=== PATIENT | male | born 1970 | race Caucasian/White ===

== ENCOUNTER → 2017-01-25 | Outpatient (CLI) | payer OTHER ==
--- NOTE | 2017-01-25 14:34 | Diagnostic Imaging Report ---
PROCEDURE: CT head and CT cervical spine without contrast. TECHNIQUE: Multiple contiguous axial images were obtained through the brain and cervical spine without the use of intravenous contrast. Sagittal and coronal reformations through the cervical spine were then performed. INDICATION: Left arm paresthesias. COMPARISON: None. FINDINGS: CT HEAD: No intracranial hemorrhage, mass effect, hydrocephalus or extra-axial fluid collections. No CT evidence of acute infarction. Osseous structures are intact. Mild mucosal thickening or mucous retention cyst in the floor of the right maxillary sinus. Bilateral maxillary antrostomies and ethmoidectomies. The mastoid air cells are clear. The orbits are unremarkable. CT CERVICAL SPINE: Normal alignment of cervical spine. Benign hemangioma in the C5 vertebral body. Vertebral body heights are maintained. No acute fracture. The visualized paravertebral soft tissues are unremarkable. There are moderate to advanced degenerative endplate changes at C5-C6 and C6-C7, including ossification of the posterior longitudinal ligament, which results in at least gczz-[id number] spinal canal narrowing at these levels. Scattered more mild degenerative endplate changes, result in no other appreciable spinal canal narrowing on this noncontrast exam. Uncovertebral and facet arthropathy result in mild to moderate bilateral neural foraminal narrowing bilaterally at C5-C6. No other substantial neural foraminal narrowing in the cervical spine. IMPRESSION: 1. Degenerative endplate changes at C5-C6 and C6-C7, including ossification of posterior longitudinal ligament, results in at least mild to moderate spinal canal narrowing at these levels. This could be better evaluated with CT myelogram or MRI. 2. Uyzq-xf-[id number] bilateral neural foraminal narrowing at C5-C6. 3. No acute intracranial CT findings. Dictated by: Dictated on workstation # [id number]
== END ==
LOC: RAD 14:01
PROVIDERS: ATTEND Family Medicine
DX: R20.2 Paresthesia of skin (principal); R20.0 Anesthesia of skin; M47.812 Spondylosis without myelopathy or radiculopathy, cervical region
CPT/HCPCS: 70450; 72125

== ENCOUNTER → 2017-02-18 | Outpatient (CLI) | payer OTHER | LOC: RAD 13:38 | PROVIDERS: ATTEND Family Medicine | DX: R20.0 Anesthesia of skin (principal) ==

== ENCOUNTER 2018-01-01 07:43 | Emergency (ER) | payer OTHER ==
[~2018-01-01] VITALS: Ht 185.4 cm; Wt 108.9 kg
[2018-01-01] MEDS ORDERED: NS IV 1000 ML 1,000 ML IV ONE (07:56)
[2018-01-01] MEDS ORDERED: fentaNYL INJECTION 100 MCG/2 ML AMP IVP STA ×2 (07:56→10:05)
--- NOTE | 2018-01-01 08:07 | ED Trauma-Multisystem ---
General Chief Complaint: Trauma-Non Activation Stated Complaint: L SIDE,BACK PAIN Source of Information: Patient Exam Limitations: No Limitations History of Present Illness Date Seen by Provider: Jan 01, 2018 Time Seen by Provider: 07:50 Initial Comments Here with report of syncopal episode last night at about 10 p.m. States he was in the ground smoking when he had a coughing fit. This caused him to pass out and he fell forward and hit the left side of his chest and ribs on the van parked in the garage and then hit the floor face first. Has bruising to his face and nose. Complains of significant pain to the left lower lateral chest wall and left side of the abdomen. States it hurts when taking a breath. Has not taken anything for pain. Reports some difficulty with breathing. Denies vomiting or diarrhea. Does report pain to the chest and abdomen with any movement of the torso or arms. Location Injury Occurred: home Occurred: Yesterday Severity: Moderate Pain/Injury Location: Abdomen, Chest, Face, Head Method of Injury: Direct Blow, Fall Modifying Factors: Immobilization, No Movement Loss of Consciousness: Brief (Seconds) Associated Symptoms (Fall): Abdominal Pain, Chest Pain, No Lightheadedness, Muscle Spasms, No Nausea/Vomiting, No Neck Pain Allergies and Home Medications Allergies Coded Allergies: No Known Drug Allergies (Unverified , 01/01/18) Home Medications Alprazolam 0.5 Mg Tablet, 1 MG PO DAILY, (Reported) Esomeprazole Magnesium 20 Mg Capsule.dr, 20 MG PO DAILY, (Reported) Lisinopril 20 Mg Tablet, 20 MG PO DAILY, (Reported) Naproxen 500 Mg Tablet, 500 MG PO BID, (Reported) Tramadol HCl 50 Mg Tablet, 50 MG PO QID PRN for prn, (Reported) Patient Home Medication List Home Medication List Reviewed: Yes Constitutional: see HPI, No chills, No fever Eyes: No Symptoms Reported Ears: No Symptoms Reported Nose: No Symptoms Reported Mouth: No Symptoms Reported Throat: No Symptoms to Report Respiratory: see HPI, cough, No wheezing Cardiovascular: See HPI, Denies Edema, Denies Palpitations Gastrointestinal: abdominal pain, No nausea, No vomiting Genitourinary: no symptoms reported Musculoskeletal: see HPI, muscle pain, muscle stiffness, No neck pain Skin: No see HPI, change in color (bruising noted to upper nose and central forehead), No lesions Psychiatric/Neurological: No Symptoms Reported All Other Systems Reviewed Negative Unless Noted: Yes Past Manjyvy-Sjhtwo-Luwwmj Hx Patient Social History Alcohol Use: Denies Use Recreational Drug Use: No Smoking Status: Current Everyday Smoker Recent Foreign Travel: No Contact w/Someone Who Travel: No Surgeries History of Surgeries: Yes Surgeries: Orthopedic Respiratory History of Respiratory Disorde: No Cardiovascular History of Cardiac Disorders: Yes Cardiac Disorders: Hypertension Neurological History of Neurological Disord: No Gastrointestinal History of Gastrointestinal Di: Yes Gastrointestinal Disorders: Gastroesophageal Reflux Musculoskeletal History of Musculoskeletal Dis: Yes Musculoskeletal Disorders: Degenerate Disk Disease Endocrine History of Endocrine Disorders: No HEENT History of HEENT Disorders: No Cancer History of Cancer: No Psychosocial History of Psychiatric Problem: Yes Behavioral Health Disorders: Anxiety Reviewed Nursing Assessment Reviewed/Agree w Nursing PMH: Yes Family Medical History Significant Family History: No Pertinent Family Hx Physical Exam Vital Signs Vital Signs - First Documented 01/01/18 07:57 Temp 98.5 Pulse 110 Resp 20 B/P (MAP) 180/103 (128) Pulse Ox 95 O2 Delivery Room Air General Appearance: No Apparent Distress, WD/WN Head: Ecchymosis (her nose and central forehead), No Active Bleeding Eyes: Bilateral Eye Normal Inspection, Bilateral Eye PERRL, Bilateral Eye EOMI Ears, Nose, Throat: Hearing Grossly Normal, No Dental Injury, Other (bruising to the nose.) Neck: Full Range of Motion, Non Tender, Supple Cardiovascular: No Murmur, Tachycardia Respiratory: Lungs Clear, Normal Breath Sounds, Other (patient with difficulty taking deep breath due to pain limitation) Gastrointestinal: Tenderness (greatest on the left side. Noted some rigidity in the left side but may be splinting.) Back: Normal Inspection, No Vertebral Tenderness, Other (tender to the left low posterior chest wall) Extremity: Normal Range of Motion, Non Tender Neurologic/Psychiatric: Alert, Oriented x3, No Motor/Sensory Deficits Skin: Warm/Dry, Ecchymosis (noted to the bases described above. No ecchymosis or abrasions to the left anterior, lateral or posterior chest wall.) Ursula Coma Score Best Eye Response ([place]): (4) Open Spontaneously Best Verbal Response ([place]): (5) Oriented Best Motor Response ([place]): (6) Obeys Commands Progress/Results/Core Measures Results/Orders Lab Results Laboratory Tests Test 01/01/18 08:00 01/01/18 09:02 01/01/18 09:08 Range/Units White Blood Count 10.4 4.3-11.0 10^3/uL Red Blood Count 5.79 4.35-5.85 10^6/uL Hemoglobin 15.9 13.3-17.7 G/DL Hematocrit 48 40-54 % Mean Corpuscular Volume 83 80-99 FL Mean Corpuscular Hemoglobin 28 25-34 PG Mean Corpuscular Hemoglobin Concent 33 32-36 G/DL Red Cell Distribution Width 18.2 H 10.0-14.5 % Platelet Count 254 130-400 10^3/uL Mean Platelet Volume 9.8 7.4-10.4 FL Neutrophils (%) (Auto) 67 42-75 % Lymphocytes (%) (Auto) 19 12-44 % Monocytes (%) (Auto) 11 0-12 % Eosinophils (%) (Auto) 1 0-10 % Basophils (%) (Auto) 1 0-10 % Neutrophils # (Auto) 7.0 1.8-7.8 X 10^3 Lymphocytes # (Auto) 2.0 1.0-4.0 X 10^3 Monocytes # (Auto) 1.1 H 0.0-1.0 X 10^3 Eosinophils # (Auto) 0.1 0.0-0.3 10^3/uL Basophils # (Auto) 0.1 0.0-0.1 10^3/uL Sodium Level 136 135-145 MMOL/L Potassium Level 3.8 3.6-5.0 MMOL/L Chloride Level 103 98-107 MMOL/L Carbon Dioxide Level 27 21-32 MMOL/L Anion Gap 6 5-14 MMOL/L Blood Urea Nitrogen 7 7-18 MG/DL Creatinine 0.85 0.60-1.30 MG/DL Estimat Glomerular Filtration Rate > 60 BUN/Creatinine Ratio 8 Glucose Level 112 H 70-105 MG/DL Calcium Level 8.8 8.5-10.1 MG/DL Total Bilirubin 0.5 0.1-1.0 MG/DL Aspartate Amino Transf (AST/SGOT) 28 5-34 U/L Alanine Aminotransferase (ALT/SGPT) 40 0-55 U/L Alkaline Phosphatase 56 40-136 U/L Total Protein 6.5 6.4-8.2 GM/DL Albumin 4.1 3.2-4.5 GM/DL Amylase Level 57 25-125 U/L Lipase 33 8-78 U/L Urine Color YELLOW Urine Clarity CLEAR Urine pH 8 5-9 Urine Specific [place] 1.010 L 1.016-1.022 Urine Protein NEGATIVE NEGATIVE Urine Glucose (UA) NEGATIVE NEGATIVE Urine Ketones NEGATIVE NEGATIVE Urine Nitrite NEGATIVE NEGATIVE Urine Bilirubin NEGATIVE NEGATIVE Urine Urobilinogen NORMAL NORMAL MG/DL Urine Leukocyte Esterase NEGATIVE NEGATIVE Urine RBC (Auto) NEGATIVE NEGATIVE Urine RBC NONE /HPF Urine WBC NONE /HPF Urine Squamous Epithelial Cells NONE /HPF Urine Crystals NONE /LPF Urine Bacteria NEGATIVE /HPF Urine Casts NONE /LPF Urine Mucus NEGATIVE /LPF Urine Culture Indicated NO My Orders Orders - BILLIE TALAVERA MD Amylase (01/01/18 07:56) Cbc With Automated Diff (01/01/18 07:56) Comprehensive Metabolic Panel (01/01/18 07:56) Lipase (01/01/18 07:56) Ua Culture If Indicated (01/01/18 07:56) Saline Lock/Iv-Start (01/01/18 07:56) Ns Iv 1000 Ml (Sodium Chloride 0.9%) (01/01/18 07:56) Fentanyl Injection (Sublimaze Injection (01/01/18 07:56) Ct Head/Cervical Spine Wo (01/01/18 07:56) Ct Chest/Abdomen/Pelvis W (01/01/18 07:56) Iohexol Injection (Omnipaque 350 Mg/Ml 1 (01/01/18 08:15) Sodium Chloride Flush (Catheter Flush Sy (01/01/18 08:15) Ns (Ivpb) (Sodium Chloride 0.9%) (01/01/18 08:15) Pharmacy Communication (Pharmacy Communi (01/01/18 08:08) Iohexol Injection (Omnipaque 350 Mg/Ml 1 (01/01/18 08:45) Sodium Chloride Flush (Catheter Flush Sy (01/01/18 08:45) Ns (Ivpb) (Sodium Chloride 0.9%) (01/01/18 08:45) Pharmacy Communication (Pharmacy Communi (01/01/18 08:32) Fentanyl Injection (Sublimaze Injection (01/01/18 10:05) Hydrocodone/Apap 7.5/325 Tab (Lortab 7. (01/01/18 10:05) Incentive Spirometryrt Initial (01/01/18 10:05) Incentive Spirometry (Nursing) Q2H (01/01/18 10:05) Medications Given in ED Current Medications Medications Dose Ordered Sig/Zane Route Start Time Stop Time Status Last Admin Dose Admin Iohexol 100 ml ONCE ONCE IV 01/01/18 08:15 01/01/18 08:16 DC 01/01/18 08:50 100 ML Sodium Chloride 250 ml ONCE ONCE IV 01/01/18 08:15 01/01/18 08:16 DC 01/01/18 08:50 80 ML Sodium Chloride 1,000 ml @ 0 mls/hr Q0M ONCE IV 01/01/18 07:56 01/01/18 08:00 DC 01/01/18 08:16 1,000 MLS/HR Vital Signs/I&O Vital Sign - Last 12Hours 01/01/18 01/01/18 01/01/18 07:57 08:07 08:15 Temp 98.5 98.5 98.5 Pulse 110 110 Resp 20 20 B/P (MAP) 180/103 (128) 180/103 (128) Pulse Ox 95 95 O2 Delivery Room Air Room Air Progress Note : Progress Note Seen and evaluated. IV, labs, UA, CT head and neck without contrast and CT of chest, abdomen and pelvis with contrast. Normal saline 1 L bolus. Fentanyl 75 g IV ordered. Monitor patient. 1000: Reviewed fractures noted on CT. Repeat fentanyl 75 g IV ordered. Hydrocodone 7.5 mg by mouth ordered. I discussed the case with Dr. Rutherford as well as Dr. Felder. They will both see him in follow-up. RT for incentive spirometer teaching ordered. Discharged home with return precautions. Patient and family verbalize understanding instructions and agreement with plan. Diagnostic Imaging Diagonstic Imaging: CT Plain Films/CT/US/NM/MRI: chest, abdomen, pelvis Comments [place] NAME: AMMY JAMESON A MED REC#: [id number] PT STATUS: REG ER : 1970 PHYSICIAN: BILLIE TALAVERA MD ADMIT DATE: 01/01/18/ER Draft Date of Exam:01/01/18 CT CHEST/ABDOMEN/PELVIS W PROCEDURE: CT chest, abdomen, and pelvis with contrast. TECHNIQUE: Multiple contiguous axial images were obtained through the chest, abdomen, and pelvis after the administration of intravenous contrast. INDICATION: Choking spell and fall with left lateral chest pain. CT chest: FINDINGS: No definite mediastinal hematoma or great vessel injury is seen. No pericardial or pleural fluid is detected. No parenchymal contusion or pneumothorax is seen. There are some subtle lucency involving anterior aspect of left sixth, seventh and eighth ribs, suspicious for nondisplaced fractures. No displaced rib fracture is identified. IMPRESSION: Findings suspicious for left sixth through eighth nondisplaced rib fractures. No other significant abnormality is seen. CT abdomen and pelvis: No focal liver or splenic laceration is identified. The gallbladder is unremarkable. Pancreas is unremarkable. No adrenal mass or hematoma is identified. Kidneys are unremarkable apart from small cortical cyst left kidney. There is a retroaortic left renal vein, normal variant. The aorta is non-aneurysmal. The small and large bowel loops are normal caliber. There is mild sigmoid diverticulosis. No ascites is seen. The bladder is unremarkable. IMPRESSION: 1. No evidence of abdominal or pelvic visceral injury. 2. Uncomplicated sigmoid diverticulosis. Dictated on workstation # [id number] Dict: 01/01/18912 Trans: 01/01/18920 [id number] Interpreted by: KIP JONES MD Electronically signed by: Amandagonsjackie Imaging: CT Plain Films/CT/US/NM/MRI: abdomen, pelvis Comments [place] NAME: AMMY JAMESON [facility] REC#: [id number] PT STATUS: REG ER : 1970 PHYSICIAN: BILLIE TALAVERA MD ADMIT DATE: 01/01/18/ER Draft Date of Exam:01/01/18 CT HEAD/CERVICAL SPINE WO Clinical indication: Patient blacked out and hit head on floor after choking spell. Patient feels knot in throat. Exam: Head CT without IV contrast. Axial CT scan of the cervical spine with sagittal and coronal reformations. Comparison: CT scan of the head and cervical spine without contrast dated 01/25/2017. Findings: Head CT: There is no evidence of acute cerebral infarct, intracranial hemorrhage, or gross mass effect. The brain parenchymal volume appears appropriate for patient's age. There is normal bolden-white matter distinction. There is no significant midline shift or herniation. There is no evidence of hydrocephalus. The basal cisterns are unremarkable. The skull, extracranial soft tissue, and orbits are unremarkable. There is a small to moderate-sized mucus retention cyst in right maxillary sinus. There are postop changes to the paranasal sinuses seen. There is a small mucus retention cyst in the posterior left ethmoid sinus. There is a small amount of fluid in the right mastoid air cells. Cervical spine: There is no acute cervical spine fracture or dislocation. Comparison to prior CT scan, there has been interval postop changes with partial corpectomy of the C5 and C6 vertebral bodies with inner body fusion cage seen connecting the C4-C7 vertebra. There is solid bony bridging/fusion seen. There is no gross hardware complication seen. There is anterior fusion hardware seen from the C4 spanning to the C7 level. There is posterior fusion hardware with facet screws and bilateral spanning rods seen from the C4-C7 level. There is no significant bony central canal narrowing. There is moderate to severe left C3-C4 bony neural foramen narrowing and moderate right C3-C4 bony neural foramen narrowing from uncinate spurs and facet arthropathy. Besides postop changes, the neck soft tissue structures show no significant abnormality. Stable small calcification in the midline posterior nasopharyngeal soft tissue. Impression: 1: There is no evidence of acute intracranial process. There is no intracranial hemorrhage or skull fracture. 2: There is no acute cervical spine fracture or dislocation. 3: There is interval postop changes with C5-C6 partial corpectomy with C4-C7 360 degree fusion. There is solid intervertebral bony fusion seen between the C4 and C7 vertebra. Dictated on workstation # [id number] Dict: 01/01/18 0844 Trans: 01/01/18 0857 [facility] [id number] Interpreted by: PRERNA OH MD Electronically signed by: Departure Impression Impression: Primary Impression: Traumatic closed nondisplaced fracture of three ribs on left side Qualified Codes: S22.42XA - Multiple fractures of ribs, left side, initial encounter for closed fracture Additional Impression: Head injury, acute Qualified Codes: S09.90XA - Unspecified injury of head, initial encounter Disposition: 01 HOME, SELF-CARE Condition: Stable Departure-Patient Inst. Decision time for Depature: 10:12 Referrals: RUBY FELDER DO (PCP/Family) Primary Care Physician RUT RUTHERFORD MD Patient Instructions: Minor Head Injury (DC), Rib Fracture (DC) Add. Discharge Instructions: All discharge instructions reviewed with patient and/or family. Voiced understanding. Use incentive spirometer several times per hour while awake. Take medications as directed. Follow-up with Dr. Felder either Saturday around 11 or next Saturday afternoon. Call Dr. Rutherford's office today for appointment within one week for recheck and further evaluation. Return for worse pain, fever, vomiting , weakness, breathing problems or other concerns as needed. Scripts Hydrocodone/Acetaminophen (Hydrocodone-Acetamin 7.5-325) 1 Each Tablet 1 EACH PO q4-6 hours Y for PAIN-MODERATE, #30 TAB 0 Refills Prov: BILLIE TALAVERA MD 01/01/18 Naproxen (Naprosyn) 500 Mg Tablet 500 MG PO BID Y for PAIN-MILD TO MODERATE, #30 TAB 0 Refills Prov: BILLIE TALAVERA MD 01/01/18 Copy Copies To 1: RUBY FELDER DO Copies To 2: RUT RUTHERFORD MD, TIMOTHY D MD Jan 01, 2018 08:07
[2018-01-01 08:10] LABS: BASOPHILS # (AUTO) 0.1 10^3/uL (0.0-0.1); BASOPHILS % (AUTO) 1 % (0-10); EOSINOPHILS # (AUTO) 0.1 10^3/uL (0.0-0.3); EOSINOPHILS % (AUTO) 1 % (0-10); HEMATOCRIT 48 % (40-54); HEMOGLOBIN 15.9 G/DL (13.3-17.7); LYMPHOCYTES % (AUTO) 19 % (12-44); MEAN CORPUSCULAR HEMOGLOBIN 28 PG (25-34); MEAN CORPUSCULAR HGB CONC 33 G/DL (32-36); MEAN CORPUSCULAR VOLUME 83 FL (80-99); MEAN PLATELET VOLUME 9.8 FL (7.4-10.4); MONOCYTES # (AUTO) 1.1 X 10^3 (0.0-1.0); MONOCYTES % (AUTO) 11 % (0-12); NEUTROPHILS % (AUTO) 67 % (42-75); PLATELET COUNT 254 10^3/uL (130-400); RED BLOOD COUNT 5.79 10^6/uL (4.35-5.85); RED CELL DISTRIBUTION WIDTH 18.2 % (10.0-14.5); WHITE BLOOD COUNT 10.4 10^3/uL (4.3-11.0)
[2018-01-01] MEDS ORDERED: NS 250 ML (IVPB) BAG IV ONE ×2 (08:15→08:45)
[2018-01-01] MEDS ORDERED: CATHETER FLUSH 10 ML SYR IV PRN ×2 (08:15→08:45)
[2018-01-01] MEDS ORDERED: IOHEXOL 350 MG/ML 100 ML (OMNIPAQUE 350) VIAL IV ONE ×2 (08:15→08:45)
[2018-01-01] MEDS ORDERED: ESOM20CA PO (08:44)
[2018-01-01] MEDS ORDERED: NAPR-915 PO (08:44)
[2018-01-01] MEDS ORDERED: LISI-552 PO (08:46)
[2018-01-01] MEDS ORDERED: TRAM50TA2 PO (08:46)
[2018-01-01] MEDS ORDERED: ALPR0.5T PO (08:46)
--- NOTE | 2018-01-01 08:58 | Diagnostic Imaging Report ---
Clinical indication: Patient blacked out and hit head on floor after choking spell. Patient feels knot in throat. Exam: Head CT without IV contrast. Axial CT scan of the cervical spine with sagittal and coronal reformations. Comparison: CT scan of the head and cervical spine without contrast dated 01/25/2017. Findings: Head CT: There is no evidence of acute cerebral infarct, intracranial hemorrhage, or gross mass effect. The brain parenchymal volume appears appropriate for patient's age. There is normal bolden-white matter distinction. There is no significant midline shift or herniation. There is no evidence of hydrocephalus. The basal cisterns are unremarkable. The skull, extracranial soft tissue, and orbits are unremarkable. There is a small to moderate-sized mucus retention cyst in right maxillary sinus. There are postop changes to the paranasal sinuses seen. There is a small mucus retention cyst in the posterior left ethmoid sinus. There is a small amount of fluid in the right mastoid air cells. Cervical spine: There is no acute cervical spine fracture or dislocation. Comparison to prior CT scan, there has been interval postop changes with partial corpectomy of the C5 and C6 vertebral bodies with inner body fusion cage seen connecting the C4-C7 vertebra. There is solid bony bridging/fusion seen. There is no gross hardware complication seen. There is anterior fusion hardware seen from the C4 spanning to the C7 level. There is posterior fusion hardware with facet screws and bilateral spanning rods seen from the C4-C7 level. There is no significant bony central canal narrowing. There is moderate to severe left C3-C4 bony neural foramen narrowing and moderate right C3-C4 bony neural foramen narrowing from uncinate spurs and facet arthropathy. Besides postop changes, the neck soft tissue structures show no significant abnormality. Stable small calcification in the midline posterior nasopharyngeal soft tissue. Impression: 1: There is no evidence of acute intracranial process. There is no intracranial hemorrhage or skull fracture. 2: There is no acute cervical spine fracture or dislocation. 3: There is interval postop changes with C5-C6 partial corpectomy with C4-C7 360 degree fusion. There is solid intervertebral bony fusion seen between the C4 and C7 vertebra. Dictated by: Dictated on workstation # [id number]
[2018-01-01 09:14] LABS: BILIRUBIN,URINE NEGATIVE (NEGATIVE); CLARITY,URINE CLEAR; COLOR,URINE YELLOW; GLUCOSE, URINE (UA) NEGATIVE (NEGATIVE); KETONES,URINE NEGATIVE (NEGATIVE); LEUKOCYTE ESTERASE ,URINE NEGATIVE (NEGATIVE); NITRITE,URINE NEGATIVE (NEGATIVE); PH,URINE 8 (5-9); PROTEIN,URINE NEGATIVE (NEGATIVE); UROBILINOGEN,URINE NORMAL (NORMAL)
--- NOTE | 2018-01-01 09:22 | Diagnostic Imaging Report ---
PROCEDURE: CT chest, abdomen, and pelvis with contrast. TECHNIQUE: Multiple contiguous axial images were obtained through the chest, abdomen, and pelvis after the administration of intravenous contrast. INDICATION: Choking spell and fall with left lateral chest pain. CT chest: FINDINGS: No definite mediastinal hematoma or great vessel injury is seen. No pericardial or pleural fluid is detected. No parenchymal contusion or pneumothorax is seen. There are some subtle lucency involving anterior aspect of left sixth, seventh and eighth ribs, suspicious for nondisplaced fractures. No displaced rib fracture is identified. IMPRESSION: Findings suspicious for left sixth through eighth nondisplaced rib fractures. No other significant abnormality is seen. CT abdomen and pelvis: No focal liver or splenic laceration is identified. The gallbladder is unremarkable. Pancreas is unremarkable. No adrenal mass or hematoma is identified. Kidneys are unremarkable apart from small cortical cyst left kidney. There is a retroaortic left renal vein, normal variant. The aorta is non-aneurysmal. The small and large bowel loops are normal caliber. There is mild sigmoid diverticulosis. No ascites is seen. The bladder is unremarkable. IMPRESSION: 1. No evidence of abdominal or pelvic visceral injury. 2. Uncomplicated sigmoid diverticulosis. Dictated by: Dictated on workstation # [id number]
[2018-01-01 09:28] LABS: BACTERIA,URINE NEGATIVE /HPF
[2018-01-01 09:35] LABS: ALANINE AMINOTRANSFERASE 40 U/L (0-55); ALBUMIN 4.1 GM/DL (3.2-4.5); ALKALINE PHOSPHATASE 56 U/L (40-136); AMYLASE 57 U/L (25-125); BILIRUBIN,TOTAL 0.5 MG/DL (0.1-1.0); BUN/CREATININE RATIO 8; CALCIUM 8.8 MG/DL (8.5-10.1); CARBON DIOXIDE 27 MMOL/L (21-32); CHLORIDE 103 MMOL/L (98-107); CREATININE SERUM 0.85 MG/DL (0.60-1.30); GFR ESTIMATED > 60; GLUCOSE 112 MG/DL (70-105); LIPASE 33 U/L (8-78); POTASSIUM 3.8 MMOL/L (3.6-5.0); SODIUM 136 MMOL/L (135-145); TOTAL PROTEIN 6.5 GM/DL (6.4-8.2)
[2018-01-01] MEDS ORDERED: HYDROcodone/APAP 7.5 MG/325 MG (LORTAB, LORCET PLUS) TABLET PO STA (10:05)
[2018-01-01] MEDS ORDERED: NAPR-1071 PO (10:17)
[2018-01-01] MEDS ORDERED: HYDR-3816 PO (10:17)
[2018-01-01 10:30] VITALS: BP 180/103
== END 2018-01-01 10:30 | disposition home or self-care (01) ==
LOC: EDUNIT# 07:43 → ER 07:45
DX: S09.90XA Unspecified injury of head, initial encounter (principal); S22.42XA Multiple fractures of ribs, left side, initial encounter for closed fracture; R40.2142 Coma scale, eyes open, spontaneous, at arrival to emergency department; R40.2252 Coma scale, best verbal response, oriented, at arrival to emergency department; R40.2362 Coma scale, best motor response, obeys commands, at arrival to emergency department; I10 Essential (primary) hypertension; K21.9 Gastro-esophageal reflux disease without esophagitis; F41.9 Anxiety disorder, unspecified; F17.200 Nicotine dependence, unspecified, uncomplicated; W01.198A Fall on same level from slipping, tripping and stumbling with subsequent striking against other object, initial encounter; Y92.59 Other trade areas as the place of occurrence of the external cause
CPT/HCPCS: 36415; 70450; 71260; 72125; 74177; 80053; 81000; 82150; 83690; 85025; 94664; 96361; 96374; 96376

== ENCOUNTER 2018-11-19 20:29 | Inpatient (IN) | payer OTHER ==
[~2018-11-19] VITALS: Ht 188 cm; Wt 118.0 kg
[~2018-11-19 20:29] MED LIST: ALPR0.5T PO; ESOM20CA PO; HYDR-3816 PO; LISI-552 PO; NAPR-1071 PO; NAPR-915 PO; TRAM50TA2 PO
--- OUTSIDE RECORDS SUMMARY | 2018-11-19 20:34 | XMS REPORT | Continuity of Care Document ---
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 Problems Date Dx Coded Attending Type Code Diagnosis Diagnosed By 07/31/2013 VANDANA MAY DO Ot 840.9 07/31/2013 COLTHARP DOVANDANA Ot E000.0 07/31/2013 COLTHARP DOVANDANA Ot E849.8 07/31/2013 COLTHARP DOVANDANA Ot E885.9 07/31/2013 COLTHARP DOVANDANA Ot V57.1 01/29/2017 GELLENDER DO, RUBY Armstrong Ot M47.812 SPONDYLOSIS W/O MYELOPATHY OR RADICULOPA 01/29/2017 GELLENDER DO, RUBY Armstrong Ot R20.0 ANESTHESIA OF SKIN 01/29/2017 GELLENDER DO, RUBY Armstrong Ot R20.2 PARESTHESIA OF SKIN 02/26/2017 GELLENDER DO, RUBY Armstrong Ot M47.812 SPONDYLOSIS W/O MYELOPATHY OR RADICULOPA 02/26/2017 GELLENDER DO, RUBY Armstrong Ot R20.0 ANESTHESIA OF SKIN 02/26/2017 GELLENDER DO, RUBY Armstrong Ot R20.2 PARESTHESIA OF SKIN 01/01/2018 GELLENDER DO, RUBY Armstrong Ot M47.812 SPONDYLOSIS W/O MYELOPATHY OR RADICULOPA 01/01/2018 GELLENDER DO, RUBY Armstrong Ot R20.0 ANESTHESIA OF SKIN 01/01/2018 GELLENDER DO, RUBY A Ot R20.2 PARESTHESIA OF SKIN 01/01/2018 GELLENDER DO, RUBY A Ot R20.0 ANESTHESIA OF SKIN 01/01/2018 SADAF QUIÑONES, BILLIE Roberto Ot F17.200 NICOTINE DEPENDENCE, UNSPECIFIED, UNCOMP 01/01/2018 BILLIE TALAVERA MD Ot F41.9 ANXIETY DISORDER, UNSPECIFIED 01/01/2018 BILLIE TALAVERA MD Ot I10 ESSENTIAL (PRIMARY) HYPERTENSION 01/01/2018 BILLIE TALAVERA MD, Ot K21.9 GASTRO-ESOPHAGEAL REFLUX DISEASE WITHOUT 01/01/2018 BILLIE TALAVERA MD Ot R40.2142 COMA SCALE, EYES OPEN, SPONTANEOUS, EMR 01/01/2018 BILLIE TALAVERA MD Ot R40.2252 COMA SCALE, BEST VERBAL RESPONSE, ORIENT 01/01/2018 BILLIE TALAVERA MD, Ot R40.2362 COMA SCALE, BEST MOTOR RESPONSE, OBEYS C 01/01/2018 BILLIE TALAVERA MD Ot R55 SYNCOPE AND COLLAPSE 01/01/2018 BILLIE TALAVERA MD, Ot S09.90XA UNSPECIFIED INJURY OF HEAD, INITIAL ENCO 01/01/2018 BILLIE TALAVERA MD Ot S22.42XA MULTIPLE FRACTURES OF RIBS, LEFT SIDE, I 01/01/2018 BILLIE TALAVERA MD Ot W01.198A FALL SAME LEV FROM SLIP/TRIP W STRIKE AG 01/01/2018 BILLIE TALAVERA MD Ot Y92.[address] 01/03/2018 BILLIE TALAVERA MD Ot F17.200 NICOTINE DEPENDENCE, UNSPECIFIED, UNCOMP 01/03/2018 BILLIE TALAVERA MD, Ot F41.9 ANXIETY DISORDER, UNSPECIFIED 01/03/2018 BILLIE TALAVERA MD Ot I10 ESSENTIAL (PRIMARY) HYPERTENSION 01/03/2018 BILLIE TALAVERA MD, Ot K21.9 GASTRO-ESOPHAGEAL REFLUX DISEASE WITHOUT 01/03/2018 BILLIE TALAVERA MD Ot R40.2142 COMA SCALE, EYES OPEN, SPONTANEOUS, EMR 01/03/2018 BILLIE TALAVERA MD, Ot R40.2252 COMA SCALE, BEST VERBAL RESPONSE, ORIENT 01/03/2018 BILLIE TALAVERA MD, Ot R40.2362 COMA SCALE, BEST MOTOR RESPONSE, OBEYS C 01/03/2018 BILLIE TALAVERA MD Ot R55 SYNCOPE AND COLLAPSE 01/03/2018 BILLIE TALAVERA MD Ot S09.90XA UNSPECIFIED INJURY OF HEAD, INITIAL ENCO 01/03/2018 BILLIE TALAVERA MD Ot S22.42XA MULTIPLE FRACTURES OF RIBS, LEFT SIDE, I 01/03/2018 SADAF QUIÑONES, BILLIE Roberto Ot W01.198A FALL SAME LEV FROM SLIP/TRIP W STRIKE AG 01/03/2018 SADAF QUIÑONES, BILLIE Roberto Ot Y92.[address] 07/21/2018 GELLENDER DO, RUBY Armstrong Ot M47.812 SPONDYLOSIS W/O MYELOPATHY OR RADICULOPA 07/21/2018 GELLENDER DO, RUBY A Ot R20.0 ANESTHESIA OF SKIN 07/21/2018 GELLENDER DO, RUBY A Ot R20.2 PARESTHESIA OF SKIN 07/21/2018 GELLENDER DO, RUBY A Ot R20.0 ANESTHESIA OF SKIN 11/19/2018 GELLENDER DO, RUBY Nathaniel Ot M47.812 SPONDYLOSIS W/O MYELOPATHY OR RADICULOPA 11/19/2018 GELLENDER DO, RUBY A Ot R20.0 ANESTHESIA OF SKIN 11/19/2018 GELLENDER DO, RUBY Nathaniel Ot R20.2 PARESTHESIA OF SKIN 11/19/2018 GELLENDER DO, RUBY Nathaniel Ot R20.0 ANESTHESIA OF SKIN Procedures There is no data. Results Test Result Range Complete blood count (CBC) with automated white blood cell (WBC) differential - 01/01/18 08:00 Blood leukocytes automated count (number/volume) 10.4 10*3/uL 4.3-11.0 Blood erythrocytes automated count (number/volume) 5.79 10*6/uL 4.35-5.85 Venous blood hemoglobin measurement (mass/volume) 15.9 g/dL 13.3-17.7 Blood hematocrit (volume fraction) 48 % 40-54 Automated erythrocyte mean corpuscular volume 83 [foz_us] 80-99 Automated erythrocyte mean corpuscular hemoglobin (mass per erythrocyte) 28 pg 25-34 Automated erythrocyte mean corpuscular hemoglobin concentration measurement ( mass/volume) 33 g/dL 32-36 Automated erythrocyte distribution width ratio 18.2 % 10.0-14.5 Automated blood platelet count (count/volume) 254 10*3/uL 130-400 Automated blood platelet mean volume measurement 9.8 [foz_us] 7.4-10.4 Automated blood neutrophils/100 leukocytes 67 % 42-75 Automated blood lymphocytes/100 leukocytes 19 % 12-44 Blood monocytes/100 leukocytes 11 % 0-12 Automated blood eosinophils/100 leukocytes 1 % 0-10 Automated blood basophils/100 leukocytes 1 % 0-10 Blood neutrophils automated count (number/volume) 7.0 10*3 1.8-7.8 Blood lymphocytes automated count (number/volume) 2.0 10*3 1.0-4.0 Blood monocytes automated count (number/volume) 1.1 10*3 0.0-1.0 Automated eosinophil count 0.1 10*3/uL 0.0-0.3 Automated blood basophil count (count/volume) 0.1 10*3/uL 0.0-0.1 Comprehensive metabolic panel - 01/01/18 09:02 Serum or plasma sodium measurement (moles/volume) 136 mmol/L 135-145 Serum or plasma potassium measurement (moles/volume) 3.8 mmol/L 3.6-5.0 Serum or plasma chloride measurement (moles/volume) 103 mmol/L 98-107 Carbon dioxide 27 mmol/L 21-32 Serum or plasma anion gap determination (moles/volume) 6 mmol/L 5-14 Serum or plasma urea nitrogen measurement (mass/volume) 7 mg/dL 7-18 Serum or plasma creatinine measurement (mass/volume) 0.85 mg/dL 0.60-1.30 Serum or plasma urea nitrogen/creatinine mass ratio 8 NRG Serum or plasma creatinine measurement with calculation of estimated glomerular filtration rate > NRG Serum or plasma glucose measurement (mass/volume) 112 mg/dL 70-105 Serum or plasma calcium measurement (mass/volume) 8.8 mg/dL 8.5-10.1 Serum or plasma total bilirubin measurement (mass/volume) 0.5 mg/dL 0.1-1.0 Serum or plasma alkaline phosphatase measurement (enzymatic activity/volume) 56 U/L 40-136 Serum or plasma aspartate aminotransferase measurement (enzymatic activity/ volume) 28 U/L 5-34 Serum or plasma alanine aminotransferase measurement (enzymatic activity/volume ) 40 U/L 0-55 Serum or plasma protein measurement (mass/volume) 6.5 g/dL 6.4-8.2 Serum or plasma albumin measurement (mass/volume) 4.1 g/dL 3.2-4.5 Serum or plasma amylase measurement (enzymatic activity/volume) - 01/01/18 09: 02 Serum or plasma amylase measurement (enzymatic activity/volume) 57 U /L 25-125 Lipase - 01/01/18 09:02 Lipase 33 U/L 8-78 Complete urinalysis with reflex to culture - 01/01/18 09:08 Urine color determination YELLOW NRG Urine clarity determination CLEAR NRG Urine pH measurement by test strip 8 5-9 Specific gravity of urine by test strip 1.010 1.016- 1.022 Urine protein assay by test strip, semi-quantitative NEGATIVE NEGATIVE Urine glucose detection by automated test strip NEGATIVE NEGATIVE Erythrocytes detection in urine sediment by light microscopy NEGATIVE NEGATIVE Urine ketones detection by automated test strip NEGATIVE NEGATIVE Urine nitrite detection by test strip NEGATIVE NEGATIVE Urine total bilirubin detection by test strip NEGATIVE NEGATIVE Urine urobilinogen measurement by automated test strip (mass/volume) NORMAL NORMAL Urine leukocyte esterase detection by dipstick NEGATIVE NEGATIVE Automated urine sediment erythrocyte count by microscopy (number/high power field) NONE NRG Automated urine sediment leukocyte count by microscopy (number/high power field ) NONE NRG Bacteria detection in urine sediment by light microscopy NEGATIVE NRG Squamous epithelial cells detection in urine sediment by light microscopy NONE NRG Crystals detection in urine sediment by light microscopy NONE NRG Casts detection in urine sediment by light microscopy NONE NRG Mucus detection in urine sediment by light microscopy NEGATIVE NRG Complete urinalysis with reflex to culture NO NRG Encounters ACCT No. Visit Date/Time Discharge Status Pt. Type Provider Facility Loc./Unit Complaint [id number] 10/20/2012 21:46:42 Document Registration [id number] 10/20/2012 21:09:27 RECURRING [id number] 01/01/2018 07:45:00 01/01/2018 10:30:00 DIS Emergency BILLIE TALAVERA MD Via [facility] ER L SIDE,BACK PAIN [id number] 02/18/2017 13:38:00 02/18/2017 23:59:59 CLS Outpatient GELLENDER DORUBY Via [facility] RAD NUMBNESS GOING DOWN LEFT ARM AND NECK, ONSET 4 WKS [id number] 01/25/2017 14:01:00 01/25/2017 23:59:59 CLS Outpatient GELLENDER DORUBY Via [facility] RAD TINGLING AND NUMBNESS GOING DOWN LT ARM AND NECK [id number] 07/30/2013 16:00:00 07/31/2013 14:11:00 DIS Outpatient VANDANA MAY DO Via [facility] REHAB [id number] 06/09/2013 13:32:00 06/09/2013 23:59:59 CLS Outpatient [id number] 11/19/2018 20:31:00 ACT Emergency RAYMUNDO QUIÑONES, BEL Marks Via [facility] ER CONGESTION,SOA
--- OUTSIDE RECORDS SUMMARY | 2018-11-19 20:34 | XMS REPORT | Continuity of Care Document ---
Author Author [facility] Organization [facility] Address Unknown Phone Unavailable Care Team Providers Care Architecture Faculty Member Name Role Phone VANDANA MAY DO PP Insurance Providers Payer Name Policy Number Subscriber Name Relationship Work Comp [id number] Ammy Jameson 01 Self / Same As Patient Problems No Known Problems or Medical conditions. Allergies, Adverse Reactions, Alerts No known allergies Medications No known medications Response Recorded Date/Time Status not known Unknown Results No Known Relevant Diagnostic Tests, Laboratory Data and/or Discharge Summary.
--- NOTE | 2018-11-19 21:07 | NUR ---
ASSUMED CARE OF PT @ THIS TIME. PT AMB TO ROOM #9. UPON ARRIVAL, LABORED BREATHING NOTED. 2L O2 VIA NC APPLIED. PT NOTED TO BE PALE, DIAPHORETIC, AND WARM TO TOUCH. AUDIBLE BREATH SOUNDS HEARD.
--- NOTE | 2018-11-19 21:10 | NUR ---
PT REPORTS HE HAS URINATED APPROX X2 IN THE LAST X2 DAYS.
[2018-11-19] MEDS ORDERED: RT-ALBUTEROL/IPRATROPIUM 3 ML (DUONEB) VIAL INH ONE (21:15)
[2018-11-19 21:16] LABS: BASOPHILS % (AUTO) 1 % (0-10); EOSINOPHILS % (AUTO) 0 % (0-10); HEMATOCRIT 46 % (40-54); HEMOGLOBIN 15.4 G/DL (13.3-17.7); LYMPHOCYTES % (AUTO) 11 % (12-44); MEAN CORPUSCULAR HEMOGLOBIN 29 PG (25-34); MEAN CORPUSCULAR HGB CONC 34 G/DL (32-36); MEAN CORPUSCULAR VOLUME 86 FL (80-99); MEAN PLATELET VOLUME 10.5 FL (7.4-10.4); MONOCYTES # (AUTO) 1.4 X 10^3 (0.0-1.0); MONOCYTES % (AUTO) 16 % (0-12); NEUTROPHILS # (AUTO) 6.3 X 10^3 (1.8-7.8); NEUTROPHILS % (AUTO) 72 % (42-75); PLATELET COUNT 197 10^3/uL (130-400); RED CELL DISTRIBUTION WIDTH 15.1 % (10.0-14.5); WHITE BLOOD COUNT 8.7 10^3/uL (4.3-11.0)
--- NOTE | 2018-11-19 21:31 | Diagnostic Imaging Report ---
EXAMINATION: Chest radiograph, portable AP view. DATE: November 19, 2018 at 2115 hours. INDICATION: 48-year-old male, shortness of breath and cough. COMPARISON: CT chest abdomen and pelvis, January 01, 2018. FINDINGS: There is partially visualized cervical spinal hardware. Heart size and mediastinal contours are unremarkable. There is no identified pneumothorax. There is no large pleural effusion. There is no identified focal airspace consolidation. IMPRESSION: No identified acute cardiopulmonary abnormality. Dictated by: Dictated on workstation # [id number]
[2018-11-19 21:35] LABS: ALANINE AMINOTRANSFERASE 43 U/L (0-55); ALBUMIN 4.4 GM/DL (3.2-4.5); ALKALINE PHOSPHATASE 59 U/L (40-136); BILIRUBIN,TOTAL 0.7 MG/DL (0.1-1.0); BUN/CREATININE RATIO 14; CALCIUM 9.3 MG/DL (8.5-10.1); CARBON DIOXIDE 24 MMOL/L (21-32); CHLORIDE 98 MMOL/L (98-107); CREATININE SERUM 1.19 MG/DL (0.60-1.30); GFR ESTIMATED > 60; GLUCOSE 104 MG/DL (70-105); POTASSIUM 3.9 MMOL/L (3.6-5.0); SODIUM 135 MMOL/L (135-145); TOTAL PROTEIN 7.4 GM/DL (6.4-8.2)
--- NOTE | 2018-11-19 21:59 | ED Respiratory ---
General Chief Complaint: Respiratory Problems Stated Complaint: CONGESTION,SOA Nursing Triage Note: PT PRESENTS TO ER TRAIGE ROOM WITH SEVER SOA. PT REPORTS HAVING GONE TO [facility] AND TESTED POSITIVE FOR FLU A AND WAS TOLD HE HAD A BACTERIAL LUNG INFECTION. PT APPEARS IN DISTRESS. Source: patient Exam Limitations: no limitations (yes) History of Present Illness Date Seen by Provider: Nov 19, 2018 Time Seen by Provider: 21:56 Initial Comments To ER per private vehicle with reports of chest congestion and shortness of breath. He went to the [facility] ([facility]] in [place] this morning and tested positive for influenza a, suspected bronchitis and was also given an antibiotic in addition to the Tamiflu. He is fairly tachypneic on arrival. No known history of COPD he does smoke 1 pack of cigarettes per day. Does not wear oxygen at home. Symptoms began Saturday11/17/18. Timing/Duration: constant Severity: moderate Associated Symptoms: fever/chills Allergies and Home Medications Allergies Coded Allergies: No Known Drug Allergies (Unverified , 01/01/18) Home Medications Alprazolam 0.5 Mg Tablet, 1 MG PO DAILY, (Reported) Esomeprazole Magnesium 20 Mg Capsule.dr, 20 MG PO DAILY, (Reported) Hydrocodone/Acetaminophen 1 Each Tablet, 1 EACH PO q4-6 hours PRN for PAIN- MODERATE Prescribed by: BILLIE TALAVERA on 01/01/18 1017 Lisinopril 20 Mg Tablet, 20 MG PO DAILY, (Reported) Naproxen 500 Mg Tablet, 500 MG PO BID, (Reported) Naproxen 500 Mg Tablet, 500 MG PO BID PRN for PAIN-MILD TO MODERATE Prescribed by: BILLIE TALAVERA on 01/01/18 1017 Tramadol HCl 50 Mg Tablet, 50 MG PO QID PRN for prn, (Reported) Patient Home Medication List Home Medication List Reviewed: Yes Review of Systems Review of Systems Constitutional: see HPI EENTM: see HPI Respiratory: see HPI, cough, dyspnea on exertion, short of breath Cardiovascular: no symptoms reported Genitourinary: no symptoms reported Musculoskeletal: no symptoms reported Skin: no symptoms reported Psychiatric/Neurological: No Symptoms Reported Hematologic/Lymphatic: No Symptoms Reported Immunological/Allergic: no symptoms reported Past Ikzvelt-Qvwcxp-Bnlklk Hx Patient Social History Alcohol Use: Denies Use Recreational Drug Use: No Smoking Status: Current Everyday Smoker Recent Foreign Travel: No Contact w/Someone Who Travel: No Recent Infectious Disease Expo: No Past Medical History Surgeries: Yes Adenoidectomy, Orthopedic, Tonsillectomy Respiratory: No Cardiac: Yes Hypertension Neurological: No Genitourinary: No Gastrointestinal: Yes Gastroesophageal Reflux Musculoskeletal: Yes Degenerate Disk Disease Endocrine: No HEENT: No Cancer: No Psychosocial: Yes Anxiety Integumentary: No Blood Disorders: No Family Medical History No Pertinent Family Hx Physical Exam Vital Signs - First Documented 11/19/18 11/19/18 20:53 21:25 Temp 97.0 Pulse 124 Resp 30 B/P (MAP) 136/85 (102) Pulse Ox 91 O2 Delivery Nasal Cannula O2 Flow Rate 3.00 Capillary Refill : Less Than 3 Seconds Height: 6'2.00" Weight: 261lbs. oz. 118.171492ao; BMI Method:Stated General Appearance: WD/WN, no apparent distress Eyes: Bilateral Eye Normal Inspection, Bilateral Eye PERRL, Bilateral Eye EOMI HEENT: PERRL/EOMI, normal ENT inspection Neck: non-tender, full range of motion Respiratory: no respiratory distress, no accessory muscle use, decreased breath sounds; No crackles, No rales, No stridor; wheezing Cardiovascular: no murmur, tachycardia Gastrointestinal: normal bowel sounds, non tender, soft Neurologic/Psychiatric: alert, normal mood/affect, oriented x 3 Skin: normal color, warm/dry Focused Exam Lactate Level 11/19/18 21:11: Lactic Acid Level 0.68 Lactic Acid Level Laboratory Tests Test 11/19/18 21:11 Lactic Acid Level 0.68 MMOL/L (0.50-2.00) Progress/Results/Core Measures Suspected Sepsis Recent Fever Within 48 Hours: Yes Infection Criteria Present: Suspected New Infection New/Unexplained Altered Menta: No Sepsis Screen: Possible Sepsis Risk SIRS Temperature:97.0 Pulse: 124 Respiratory Rate: 30 Laboratory Tests 11/19/18 21:11: White Blood Count 8.7 Blood Pressure 136 /85 Mean: 102 11/19/18 21:11: Lactic Acid Level 0.68 Laboratory Tests 11/19/18 21:11: Creatinine 1.19, Platelet Count 197, Total Bilirubin 0.7 Results/Orders Lab Results Laboratory Tests Test 11/19/18 21:11 Range/Units White Blood Count 8.7 4.3-11.0 10^3/uL Red Blood Count 5.31 4.35-5.85 10^6/uL Hemoglobin 15.4 13.3-17.7 G/DL Hematocrit 46 40-54 % Mean Corpuscular Volume 86 80-99 FL Mean Corpuscular Hemoglobin 29 25-34 PG Mean Corpuscular Hemoglobin Concent 34 32-36 G/DL Red Cell Distribution Width 15.1 H 10.0-14.5 % Platelet Count 197 130-400 10^3/uL Mean Platelet Volume 10.5 H 7.4-10.4 FL Neutrophils (%) (Auto) 72 42-75 % Lymphocytes (%) (Auto) 11 L 12-44 % Monocytes (%) (Auto) 16 H 0-12 % Eosinophils (%) (Auto) 0 0-10 % Basophils (%) (Auto) 1 0-10 % Neutrophils # (Auto) 6.3 1.8-7.8 X 10^3 Lymphocytes # (Auto) 1.0 1.0-4.0 X 10^3 Monocytes # (Auto) 1.4 H 0.0-1.0 X 10^3 Eosinophils # (Auto) 0.0 0.0-0.3 10^3/uL Basophils # (Auto) 0.0 0.0-0.1 10^3/uL Sodium Level 135 135-145 MMOL/L Potassium Level 3.9 3.6-5.0 MMOL/L Chloride Level 98 98-107 MMOL/L Carbon Dioxide Level 24 21-32 MMOL/L Anion Gap 13 5-14 MMOL/L Blood Urea Nitrogen 17 7-18 MG/DL Creatinine 1.19 0.60-1.30 MG/DL Estimat Glomerular Filtration Rate > 60 BUN/Creatinine Ratio 14 Glucose Level 104 70-105 MG/DL Lactic Acid Level 0.68 0.50-2.00 MMOL/L Calcium Level 9.3 8.5-10.1 MG/DL Corrected Calcium 9.0 8.5-10.1 MG/DL Total Bilirubin 0.7 0.1-1.0 MG/DL Aspartate Amino Transf (AST/SGOT) 47 H 5-34 U/L Alanine Aminotransferase (ALT/SGPT) 43 0-55 U/L Alkaline Phosphatase 59 40-136 U/L B-Type Natriuretic Peptide 12.2 <100.0 PG/ML Total Protein 7.4 6.4-8.2 GM/DL Albumin 4.4 3.2-4.5 GM/DL My Orders Orders - ARVIND OMALLEY APRN Albuterol/Ipra Inhalation Soln (Duoneb I (11/19/18 21:15) Svn Small Volume Nebulizer (11/19/18 21:08) Cbc With Automated Diff (11/19/18 21:08) Comprehensive Metabolic Panel (11/19/18 21:08) BNP (11/19/18 21:08) Chest 1 View, Ap/Pa Only (11/19/18 21:08) Iv Heplock-Insert (Order) (11/19/18 21:08) Blood Culture (11/19/18 21:08) Lactic Acid Analyzer (11/19/18 21:08) Iv Heplock-Insert (Order) (11/19/18 21:08) Medications Given in ED Current Medications Medications Dose Ordered Sig/Zane Route Start Time Stop Time Status Last Admin Dose Admin Albuterol/ Ipratropium 3 ml ONCE ONCE INH 11/19/18 21:15 11/19/18 21:16 DC 11/19/18 21:25 3 ML Vital Signs/I&O 11/19/18 11/19/18 20:53 21:25 Temp 97.0 Pulse 124 Resp 30 B/P (MAP) 136/85 (102) Pulse Ox 91 94 O2 Delivery Nasal Cannula O2 Flow Rate 3.00 Capillary Refill : Less Than 3 Seconds Blood Pressure Mean: 102 Departure Communication (Admissions) Time/Spoke to Admitting Phy: 21:58 Labs and x-ray are unimpressive but his respiratory effort is a bit increased to the point that I'm not comfortable with discharge to home. I discussed with Dr. Dr. Gray, we will admit Impression Primary Impression: Influenza Additional Impression: Respiratory distress Disposition: ADMITTED INPATIENT Condition: Stable Admissions Decision to Admit Reason: Admit from ER (General) Decision to Admit/Date: Nov 19, 2018 Time/Decision to Admit Time: 21:58 Departure-Patient Inst. Referrals: RUBY GRAY DO (PCP/Family) Primary Care Physician ARVIND OMALLEY APRN Nov 19, 2018 21:59
--- OUTSIDE RECORDS SUMMARY | 2018-11-19 22:32 | XMS REPORT | Continuity of Care Document ---
Demographics Preferred Language Unknown Marital Status Unknown Orthodox Affiliation Unknown Race Unknown Ethnic Group Unknown Author Author 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 Yes No Known Drug Allergies [id number] Drug Allergy Unknown N/A 01/01/2018 Medications There [...] PARESTHESIA OF SKIN 01/01/2018 GELLENDER DO, RUBY Armsrtong Ot M47.812 SPONDYLOSIS W/O MYELOPATHY OR RADICULOPA [...] urinalysis with reflex to culture NO NRG Complete blood count (CBC) with automated white blood cell (WBC) differential - 11/19/18 21:11 Blood leukocytes automated count (number/volume) 8.7 10*3/uL 4.3-11.0 Blood erythrocytes automated count (number/volume) 5.31 10*6/uL 4.35-5.85 Venous blood hemoglobin measurement (mass/volume) 15.4 g/dL 13.3-17.7 Blood hematocrit (volume fraction) 46 % 40-54 Automated erythrocyte mean corpuscular volume 86 [foz_us] 80-99 Automated erythrocyte mean corpuscular hemoglobin (mass per erythrocyte) 29 pg 25-34 Automated erythrocyte mean corpuscular hemoglobin concentration measurement ( mass/volume) 34 g/dL 32-36 Automated erythrocyte distribution width ratio 15.1 % 10.0-14.5 Automated blood platelet count (count/volume) 197 10*3/uL 130-400 Automated blood platelet mean volume measurement 10.5 [foz_us] 7.4-10.4 Automated blood neutrophils/100 leukocytes 72 % 42-75 Automated blood lymphocytes/100 leukocytes 11 % 12-44 Blood monocytes/100 leukocytes 16 % 0-12 Automated blood eosinophils/100 leukocytes 0 % 0-10 Automated blood basophils/100 leukocytes 1 % 0-10 Blood neutrophils automated count (number/volume) 6.3 10*3 1.8-7.8 Blood lymphocytes automated count (number/volume) 1.0 10*3 1.0-4.0 Blood monocytes automated count (number/volume) 1.4 10*3 0.0-1.0 Automated eosinophil count 0.0 10*3/uL 0.0-0.3 Automated blood basophil count (count/volume) 0.0 10*3/uL 0.0-0.1 Blood lactic acid measurement (moles/volume) - 11/19/18 21:11 Blood lactic acid measurement (moles/volume) 0.68 mmol/L 0.50-2.00 Comprehensive metabolic panel - 11/19/18 21:11 Serum or plasma sodium measurement (moles/volume) 135 mmol/L 135-145 Serum or plasma potassium measurement (moles/volume) 3.9 mmol/L 3.6-5.0 Serum or plasma chloride measurement (moles/volume) 98 mmol/L 98-107 Carbon dioxide 24 mmol/L 21-32 Serum or plasma anion gap determination (moles/volume) 13 mmol/L 5-14 Serum or plasma urea nitrogen measurement (mass/volume) 17 mg/dL 7-18 Serum or plasma creatinine measurement (mass/volume) 1.19 mg/dL 0.60-1.30 Serum or plasma urea nitrogen/creatinine mass ratio 14 NRG Serum or plasma creatinine measurement with calculation of estimated glomerular filtration rate > NRG Serum or plasma glucose measurement (mass/volume) 104 mg/dL 70-105 Serum or plasma calcium measurement (mass/volume) 9.3 mg/dL 8.5-10.1 Serum or plasma total bilirubin measurement (mass/volume) 0.7 mg/dL 0.1-1.0 Serum or plasma alkaline phosphatase measurement (enzymatic activity/volume) 59 U/L 40-136 Serum or plasma aspartate aminotransferase measurement (enzymatic activity/ volume) 47 U/L 5-34 Serum or plasma alanine aminotransferase measurement (enzymatic activity/volume ) 43 U/L 0-55 Serum or plasma protein measurement (mass/volume) 7.4 g/dL 6.4-8.2 Serum or plasma albumin measurement (mass/volume) 4.4 g/dL 3.2-4.5 CALCIUM CORRECTED 9.0 mg/dL 8.5-10.1 Serum or plasma lithium measurement (moles/volume) - 11/19/18 21:11 BNP level 12.2 pg/mL <100.0 Encounters ACCT No. Visit Date/Time Discharge Status Pt. Type Provider Facility Loc./Unit Complaint [id number] 10/20/2012 21:46:42 Document Registration [id number] 10/20/2012 21:09:27 RECURRING [id number] 01/01/2018 07:45:00 01/01/2018 10:30:00 DIS Emergency BILLIE TALAVERA MD Via [facility] ER L SIDE,BACK PAIN [id number] 02/18/2017 13:38:00 02/18/2017 23:59:59 CLS Outpatient RUBY FELDER DO Via [facility] RAD NUMBNESS GOING DOWN LEFT ARM AND NECK, ONSET 4 WKS [id number] 01/25/2017 14:01:00 01/25/2017 23:59:59 CLS Outpatient RUBY FELDER DO Via [facility] RAD TINGLING AND NUMBNESS GOING DOWN LT ARM AND NECK [id number] 07/30/2013 16:00:00 07/31/2013 14:11:00 DIS Outpatient VANDANA MAY DO Via [facility] REHAB [id number] 06/09/2013 13:32:00 06/09/2013 23:59:59 CLS Outpatient [id number] 11/19/2018 20:31:00 ACT Emergency ARVIND OMALLEY APRN Via [facility] ER CONGESTION,SOA
[2018-11-20] VITALS (21 sets, daily range): BP systolic 99–168; BP diastolic 69–112
[2018-11-20] MEDS ORDERED: NS IV 1000 ML 1,000 ML IV SCH (00:30)
[2018-11-20] MEDS ORDERED: ONDANSETRON 4 MG/2 ML (SDV) Z0FRAN IV PRN (00:45)
--- NOTE | 2018-11-20 01:00 | NUR ---
Reported temperature of 101.[address] Gray, orders received.
[2018-11-20] MEDS: ACETAMINOPHEN 500 MG TAB (TYLENOL) PO PRN ×2 (01:08→12:58)
[2018-11-20] MEDS: methylPREDNISolone 125 MG (Solu-MEDROL) VIAL IV SCH ×3 (01:09→17:58)
[2018-11-20] MEDS: OSELTAMIVIR 75 MG (TAMIFLU) CAPSULE PO SCH ×3 (01:13→20:44)
[2018-11-20] MEDS: RT-ALBUTEROL/IPRATROPIUM 3 ML (DUONEB) VIAL INH SCH ×5 (03:18→21:39)
[2018-11-20 03:56] LABS: BASOPHILS % (AUTO) 0 % (0-10); EOSINOPHILS % (AUTO) 0 % (0-10); HEMATOCRIT 43 % (40-54); HEMOGLOBIN 14.3 G/DL (13.3-17.7); LYMPHOCYTES # (AUTO) 0.6 X 10^3 (1.0-4.0); LYMPHOCYTES % (AUTO) 9 % (12-44); MEAN CORPUSCULAR HEMOGLOBIN 29 PG (25-34); MEAN CORPUSCULAR HGB CONC 33 G/DL (32-36); MEAN CORPUSCULAR VOLUME 88 FL (80-99); MEAN PLATELET VOLUME 10.7 FL (7.4-10.4); MONOCYTES # (AUTO) 0.4 X 10^3 (0.0-1.0); MONOCYTES % (AUTO) 5 % (0-12); NEUTROPHILS # (AUTO) 6.3 X 10^3 (1.8-7.8); NEUTROPHILS % (AUTO) 86 % (42-75); PLATELET COUNT 161 10^3/uL (130-400); RED CELL DISTRIBUTION WIDTH 15.1 % (10.0-14.5); WHITE BLOOD COUNT 7.3 10^3/uL (4.3-11.0)
[2018-11-20 04:13] LABS: ALBUMIN 4.2 GM/DL (3.2-4.5); BILIRUBIN,TOTAL 0.7 MG/DL (0.1-1.0); CALCIUM 9.1 MG/DL (8.5-10.1); CREATININE SERUM 1.47 MG/DL (0.60-1.30); POTASSIUM 3.9 MMOL/L (3.6-5.0)
[2018-11-20 05:11] LABS: LYMPHOCYTES % (MANUAL) 7 %; MONOCYTES % (MANUAL) 4 %; NEUTROPHILS % (MANUAL) 89 %
--- NOTE | 2018-11-20 06:06 | Pulmonary Consultation ---
History of Present Illness History of Present Illness Date of Consultation 11/20/18 06:00 Time Seen by Provider: 06:00 Date of Admission History of Present Illness 48yo with hx of COPD and current smoker and was recently tested + for influenza A presented to ED secondary to worsening SOB. IN the ED he was dx with acute bronchitis secondary to flu. symptoms started 11/17/18. Allergies and Home Medications Allergies Coded Allergies: No Known Drug Allergies (Unverified , 01/01/18) Home Medications Alprazolam 0.5 Mg Tablet, 1 MG PO DAILY, (Reported) Esomeprazole Magnesium 20 Mg Capsule.dr, 20 MG PO DAILY, (Reported) Hydrocodone/Acetaminophen 1 Each Tablet, 1 EACH PO q4-6 hours PRN for PAIN- MODERATE Prescribed by: BILLIE TALAVERA on 01/01/18 1017 Lisinopril 20 Mg Tablet, 20 MG PO DAILY, (Reported) Naproxen 500 Mg Tablet, 500 MG PO BID, (Reported) Naproxen 500 Mg Tablet, 500 MG PO BID PRN for PAIN-MILD TO MODERATE Prescribed by: BILLIE TALAVERA on 01/01/18 1017 Tramadol HCl 50 Mg Tablet, 50 MG PO QID PRN for prn, (Reported) Past Dqkbvcr-Lywcxw-Oyzirw Hx Patient Social History Alcohol Use: Denies Use Recreational Drug Use: No Smoking Status: Current Everyday Smoker Recent Foreign Travel: No Contact w/Someone Who Travel: No Recent Infectious Disease Expo: No Immunizations Up To Date Date of Pneumonia Vaccine: Nov 20, 2013 Date of Influenza Vaccine: Aug 20, 2018 Past Medical History Surgeries: Yes Adenoidectomy, Orthopedic, Tonsillectomy Respiratory: No Cardiac: Yes Hypertension Neurological: No Genitourinary: No Gastrointestinal: Yes Gastroesophageal Reflux Musculoskeletal: Yes Degenerate Disk Disease Endocrine: No HEENT: No Cancer: No Psychosocial: Yes Anxiety Integumentary: No Blood Disorders: No Family Medical History No Pertinent Family Hx Sepsis Event Evaluation Height, Weight, BMI Height: 6'2.00" Weight: 260lbs. 5.0oz. 118.785796gy; 33.4 BMI Method:Stated Exam Exam Vital Signs Date Time Temp Pulse Resp B/P (MAP) Pulse Ox O2 Delivery O2 Flow Rate FiO2 11/20/18 05:00 102 51 154/91 (112) 92 Nasal Cannula 5.00 11/20/18 04:15 99.3 11/20/18 04:00 108 25 153/94 (113) 92 Nasal Cannula 5.00 11/20/18 03:23 94 Nasal Cannula 3.00 11/20/18 03:00 99 24 152/97 (115) 91 Nasal Cannula 5.00 11/20/18 02:46 97 23 152/97 (115) 90 Nasal Cannula 4.00 11/20/18 02:13 102 31 143/76 (98) 91 Nasal Cannula 2.00 11/20/18 02:00 99.9 11/20/18 01:38 99.9 11/20/18 01:35 114 94 32 11/20/18 01:30 111 23 99/76 (84) 92 Nasal Cannula 2.00 11/20/18 01:00 116 11/20/18 00:32 117 11/20/18 00:31 120 33 141/90 (107) 91 Nasal Cannula 2.00 11/20/18 00:20 Nasal Cannula 2.00 11/20/18 00:11 101.5 118/78 (91) 93 Nasal Cannula 2.00 11/20/18 00:05 97.0 114 22 121/76 (91) 94 Nasal Cannula 2.00 11/19/18 21:25 94 Nasal Cannula 3.00 11/19/18 21:07 94 Nasal Cannula 2.00 11/19/18 20:53 97.0 124 30 136/85 (102) 91 Height & Weight Height: 6'2.00" Weight: 260lbs. 5.0oz. 118.922744rw; 33.4 BMI Method:Stated General Appearance: Anxious, Mild Distress HEENT: PERRL/EOMI, Pharynx Normal Neck: Full Range of Motion, Non Tender, Supple Respiratory: Crackles, Decreased Breath Sounds, Wheezing Capillary Refill: Less Than 3 Seconds Gastrointestinal: normal bowel sounds, non tender, soft Extremity: Normal Capillary Refill, Normal Inspection Neurologic/Psychiatric: Alert, Oriented x3 Skin: Normal Color, Warm/Dry Lymphatic: No Adenopathy Results Lab Laboratory Tests 11/19/18 21:11 11/20/18 03:44 Assessment/Plan Assessment/Plan Influenza A -Tamiflu -check respiratory viral panel -Pt states he did have his influenza vaccination Acute bronchitis -SVNS -Solumedrol Hypoxia -Oxygen Acute renal failure -IVF and monitor close Hyponatremia - monitor ANIYAH LAWRENCE DO Nov 20, 2018 06:05
--- NOTE | 2018-11-20 07:59 | History & Physicial ---
History of Present Illness History of Present Illness Reason for visit/HPI patient came to the emergency room by private vehicle complaining of short of the air in in respiratory distress. Patient that they was diagnosed with influenza A at [facility]. Patient states she couldn't breathe and and catch his breath area Patient stated he was coughing so bad and had drainage. Patient smokes one pack a day. Surgeries neck and T and A Family history mother Alzheimer's that prostate and skin cancer and COPD. Patient complains of sore throat Date of Admission Nov 19, 2018 at 22:09 Time Seen by a Provider: 07:54 I consulted on this patient on 11/20/18 07:48 Attending Physician Skyler Felder DO Admitting Physician kSyler Felder DO Consult Allergies and Home Medications Allergies Coded Allergies: No Known Drug Allergies (Unverified , 01/01/18) Home Medications Alprazolam 0.5 Mg Tablet, 1 MG PO DAILY, (Reported) Esomeprazole Magnesium 20 Mg Capsule.dr, 20 MG PO DAILY, (Reported) Hydrocodone/Acetaminophen 1 Each Tablet, 1 EACH PO q4-6 hours PRN for PAIN- MODERATE Prescribed by: BILLIE TALAVERA on 01/01/18 1017 Lisinopril 20 Mg Tablet, 20 MG PO DAILY, (Reported) Naproxen 500 Mg Tablet, 500 MG PO BID, (Reported) Naproxen 500 Mg Tablet, 500 MG PO BID PRN for PAIN-MILD TO MODERATE Prescribed by: BILLIE TALAVERA on 01/01/18 1017 Tramadol HCl 50 Mg Tablet, 50 MG PO QID PRN for prn, (Reported) Patient Home Medication List Home Medication List Reviewed: No Past Sczkves-Mklwvm-Bcnvpr Hx Patient Social History Marrital Status: Employed/Student: employed Alcohol Use: Denies Use Recreational Drug Use: No Smoking Status: Current Everyday Smoker Recent Foreign Travel: No Contact w/other who traveled: No Recent Infectious Disease Expo: No Immunizations Up To Date Date of Pneumonia Vaccine: Nov 20, 2013 Date of Influenza Vaccine: Aug 20, 2018 Surgeries Yes Adenoidectomy, Neurological, Orthopedic, Tonsillectomy Respiratory No Cardiovascular Yes Hypertension Neurological No Genitourinary No Gastrointestinal Yes Gastroesophageal Reflux Musculoskeletal Yes Degenerate Disk Disease Endocrine History of Endocrine Disorders: No HEENT History of HEENT Disorders: No Cancer No Psychosocial History of Psychiatric Problem: Yes Behavioral Health Disorders: Anxiety Integumentary History of Skin or Integumenta: No Blood Transfusions History of Blood Disorders: No Family Medical History Significant Family History: No Pertinent Family Hx Review of Systems Constitutional: weakness EENTM: no symptoms reported Respiratory: dyspnea on exertion, short of breath, wheezing Cardiovascular: no symptoms reported Gastrointestinal: no symptoms reported Genitourinary: no symptoms reported Skin: no symptoms reported Physical Exam Vital Signs Vital Signs - First Documented 11/19/18 11/19/18 11/20/18 20:53 21:07 01:35 Temp 97.0 Pulse 124 Resp 30 B/P (MAP) 136/85 (102) Pulse Ox 91 O2 Delivery Nasal Cannula O2 Flow Rate 2.00 FiO2 32 Capillary Refill : Less Than 3 Seconds Height, Weight, BMI Height: 6'2.00" Weight: 260lbs. 2.0oz. 117.450610ay; 33.4 BMI Method:Stated General Appearance: No Apparent Distress, WD/WN Eyes: Bilateral Eye Normal Inspection HEENT: Normal ENT Inspection Neck: Non Tender Respiratory: No Accessory Muscle Use, No Respiratory Distress, Decreased Breath Sounds Cardiovascular: Regular Rate, Rhythm, No Murmur Assessment/Plan Assessment and Plan influenza A. Patient on oxygen. Bronchitis acute. Admission Diagnosis Admission Status: Inpatient Order (span 2 midnights) Reason for Inpatient Admission: respiratory distress. Influenza a. Unable to catch breath. Tobaccoism. Short of the air Clinical Quality Measures DVT/VTE Risk/Contraindication: Risk Factor Score Per Nursin RFS Level Per Nursing on Admit: 4+=Very High SKYLER FELDER DO Nov 20, 2018 07:59
[2018-11-20] MEDS: ENOXAPARIN 40 MG/0.4 ML (LOVENOX) SYR SC SCH (08:07)
[2018-11-20] MEDS ORDERED: ESOM20CA58 PO (11:36)
[2018-11-20] MEDS ORDERED: LEVO750T9 PO (11:36)
[2018-11-20] MEDS ORDERED: HYDR-3812 PO (11:36)
[2018-11-20] MEDS ORDERED: BACL10TA PO (11:36)
[2018-11-20] MEDS ORDERED: MULT-178 PO (11:36)
[2018-11-20] MEDS ORDERED: OSLT75C PO (11:36)
[2018-11-20] MEDS ORDERED: SILD20TA14 PO (11:37)
--- NOTE | 2018-11-20 11:37 | NUR ---
CALLED [facility] CAMPOS FOR A LIST OF RECENTLY FILLED MEDICATION. I WENT OVER THAT LIST WITH THE PATIENT AND HE VERIFIED HOW HE TAKES THEM. [facility] CAMPOS FILLED: 11-19-18 LEVAQUIN 750MG DAILY #10 11-19-18 TAMIFLU 75MG BID X 5 DAYS 11-04-18 HYDROCODONE 5-325MG TID PRN #21 10-23-18 XANAX 0.5MG BID #60 10-23-18 NAPROXEN 500MG BID #60 10-23-18 SILDENAFIL 20MG 3 DAILY PRN 10-23-18 LISINOPRIL 20MG DAILY #30 10-23-18 BACLOFEN 10MG BID #60 OTC MEDS: NEXIUM DAILY MTV DAILY
--- NOTE | 2018-11-20 13:05 | NUR ---
TRANSFERRED FROM ICU PER W/C. ALERT AND COOPERATIVE. SKIN W/D. RESP. REGULAR. V/S=97.7 98 22 168/88 O2 SAT=94 % ON 3 L PER MIN. PER N/C. INSP. WHEEZES SCATTERED AT TIMES. FACE REDDENED AND FLUSHED. SALINE LOCK TO LEFT HAND IN PLACE.
--- NOTE | 2018-11-20 15:22 | NUR ---
1310 PT TRANSFERRED TO ROOM 420 VIA W/C AND PORTABLE OXYGEN TANK AT 3 L PER NC, ALL PERSONAL BELONGINGS SENT WITH PT. REPORT GIVEN TO Kobe LOVELACE RN.
--- NOTE | 2018-11-20 15:44 | Diagnostic Imaging Report ---
INDICATION: Influenza and shortness of air. TIME OF EXAM: 09:03 a.m. Correlation is made with prior study from 11/19/2018. FINDINGS: The heart size is normal. The lungs are clear. The pulmonary vascularity is normal. No effusion or pneumothorax is seen. Extensive spinal instrumentation within the cervical spine is noted. IMPRESSION: No acute cardiopulmonary process is detected. Dictated by: Dictated on workstation # [id number]
[2018-11-21] MEDS: methylPREDNISolone 125 MG (Solu-MEDROL) VIAL IV SCH ×3 (00:08→17:52)
[2018-11-21] MEDS: RT-ALBUTEROL/IPRATROPIUM 3 ML (DUONEB) VIAL INH SCH ×6 (02:28→22:42)
[2018-11-21 04:00] VITALS: BP 141/68
[2018-11-21 06:06] LABS: HEMOGLOBIN 13.6 G/DL (13.3-17.7); MEAN PLATELET VOLUME 10.8 FL (7.4-10.4); RED CELL DISTRIBUTION WIDTH 14.9 % (10.0-14.5); WHITE BLOOD COUNT 4.8 10^3/uL (4.3-11.0)
[2018-11-21 06:14] LABS: BUN/CREATININE RATIO 20; CALCIUM 9.3 MG/DL (8.5-10.1); CARBON DIOXIDE 24 MMOL/L (21-32); CHLORIDE 103 MMOL/L (98-107); CREATININE SERUM 0.94 MG/DL (0.60-1.30); GFR ESTIMATED > 60; GLUCOSE 195 MG/DL (70-105); POTASSIUM 4.8 MMOL/L (3.6-5.0); SODIUM 137 MMOL/L (135-145)
--- NOTE | 2018-11-21 07:39 | Progress Note (SOAP) ---
Subjective Time Seen by a Provider: 07:37 Subjective/Events-last exam Patient feeling better today. Patient breathing better today. Patient still on oxygen. To titrate him off. Focused Exam Lactate Level 11/19/18 21:11: Lactic Acid Level 0.68 Objective Exam Vital Signs Date Time Temp Pulse Resp B/P (MAP) Pulse Ox O2 Delivery O2 Flow Rate FiO2 11/21/18 04:00 97.8 90 18 141/68 (92) 94 Nasal Cannula 2.00 11/21/18 02:28 94 Nasal Cannula 2.50 11/20/18 23:58 98.4 94 20 151/80 (103) 94 Room Air 11/20/18 21:39 92 Nasal Cannula 2.50 11/20/18 21:11 97.4 101 24 168/101 (123) 94 Nasal Cannula 2.50 11/20/18 21:09 97.4 101 24 168/101 (123) 94 Nasal Cannula 2.50 11/20/18 19:50 92 Nasal Cannula 2.00 11/20/18 15:40 98.8 96 24 161/77 (105) 93 Nasal Cannula 2.50 11/20/18 13:00 101 140/83 (102) Nasal Cannula 5.00 11/20/18 12:58 100.2 11/20/18 12:00 108 29 140/83 (102) 92 Nasal Cannula 5.00 11/20/18 11:00 113 19 155/95 (115) 92 Nasal Cannula 5.00 11/20/18 10:33 92 Nasal Cannula 3.00 11/20/18 10:00 113 30 155/112 (126) 92 Nasal Cannula 5.00 11/20/18 09:00 125/69 (87) 11/20/18 08:22 97 Nasal Cannula 5.00 11/20/18 08:20 Nasal Cannula 5.00 11/20/18 08:02 97 Nasal Cannula 3.00 11/20/18 07:51 98.8 96 20 156/96 (116) 95 Nasal Cannula 5.00 11/20/18 07:48 94 I & O 11/21/18 07:00 Intake Total 3976 ml Balance 3976 ml Capillary Refill : Less Than 3 Seconds General Appearance: No Apparent Distress HEENT: Normal ENT Inspection Neck: Full Range of Motion, Normal Inspection Respiratory: Lungs Clear, No Accessory Muscle Use, No Respiratory Distress Cardiovascular: Regular Rate, Rhythm, No Murmur Gastrointestinal: non tender, soft Results Lab Laboratory Tests 11/21/18 05:20 Laboratory Tests 11/21/18 05:20: White Blood Count 4.8, Red Blood Count 4.74, Hemoglobin 13.6, Hematocrit 42, Mean Corpuscular Volume 89, Mean Corpuscular Hemoglobin 29, Mean Corpuscular Hemoglobin Concent 32, Red Cell Distribution Width 14.9H, Platelet Count 169, Mean Platelet Volume 10.8H, Sodium Level 137, Potassium Level 4.8, Chloride Level 103, Carbon Dioxide Level 24, Anion Gap 10, Blood Urea Nitrogen 19H, Creatinine 0.94, Estimat Glomerular Filtration Rate > 60, BUN/Creatinine Ratio 20, Glucose Level 195H, Calcium Level 9.3 Microbiology 11/19/18 Blood Culture - Preliminary, Resulted No growth Assessment/Plan Assessment/Plan Assess & Plan/Chief Complaint Influenza. Reactive airway disease. Tobaccoism. Short of the air resolved Clinical Quality Measures Admission Status Admission Dx influenza A. Patient on oxygen. Bronchitis acute. DVT/VTE Risk/Contraindication: Risk Factor Score Per Nursin RFS Level Per Nursing on Admit: 4+=Very High RUBY FELDER DO Nov 21, 2018 07:39
[2018-11-21 08:00] VITALS: BP 160/90
[2018-11-21] MEDS: ENOXAPARIN 40 MG/0.4 ML (LOVENOX) SYR SC SCH (10:00)
[2018-11-21] MEDS: OSELTAMIVIR 75 MG (TAMIFLU) CAPSULE PO SCH ×2 (10:00→20:30)
--- NOTE | 2018-11-21 10:06 | NUR ---
PTS SP02 FELL TO 87% AFTER 10 MINS WITHOUT 02. PT THEN PLACED ON 2LPM. AFTER 3MINS SP02 RETURNED TO 94%. PT QUALIFIES FOR 2LPM AT ALL TIMES. Addendum: 11/21/18 at 1008 by WHITLEY ROMERO RT Amended: Links added.
--- NOTE | 2018-11-21 11:21 | Pulmonary Progress Note ---
Subjective Time Seen by a Provider: 11:20 Subjective/Events-last exam PT states he feels improved. Sepsis Event Evaluation Height, Weight, BMI Height: 6'2.00" Weight: 260lbs. 2.0oz. 117.562262hs; 33.4 BMI Method:Stated Focused Exam Lactate Level 11/19/18 21:11: Lactic Acid Level 0.68 Exam Exam Vital Signs Date Time Temp Pulse Resp B/P (MAP) Pulse Ox O2 Delivery O2 Flow Rate FiO2 11/21/18 10:41 92 Nasal Cannula 2.00 11/21/18 07:30 96 2.50 11/21/18 04:00 97.8 90 18 141/68 (92) 94 Nasal Cannula 2.00 11/21/18 02:28 94 Nasal Cannula 2.50 11/20/18 23:58 98.4 94 20 151/80 (103) 94 Room Air 11/20/18 21:39 92 Nasal Cannula 2.50 11/20/18 21:11 97.4 101 24 168/101 (123) 94 Nasal Cannula 2.50 11/20/18 21:09 97.4 101 24 168/101 (123) 94 Nasal Cannula 2.50 11/20/18 19:50 92 Nasal Cannula 2.00 11/20/18 15:40 98.8 96 24 161/77 (105) 93 Nasal Cannula 2.50 11/20/18 13:00 101 140/83 (102) Nasal Cannula 5.00 11/20/18 12:58 100.2 11/20/18 12:00 108 29 140/83 (102) 92 Nasal Cannula 5.00 I & O 11/21/18 07:00 Intake Total 3976 ml Balance 3976 ml Height & Weight Height: 6'2.00" Weight: 260lbs. 2.0oz. 117.407945vm; 33.4 BMI Method:Stated General Appearance: No Apparent Distress HEENT: Normal ENT Inspection Neck: Full Range of Motion, Normal Inspection Respiratory: Lungs Clear, No Accessory Muscle Use, No Respiratory Distress Cardiovascular: Regular Rate, Rhythm, No Murmur Capillary Refill: Less Than 3 Seconds Gastrointestinal: non tender, soft Extremity: Normal Capillary Refill, Normal Inspection Neurologic/Psychiatric: Alert, Oriented x3 Skin: Normal Color, Warm/Dry Lymphatic: No Adenopathy Results Lab Laboratory Tests 11/19/18 21:11 2/14/19 03:44 11/21/18 05:20 Assessment/Plan Assessment/Plan Influenza A -Tamiflu -check respiratory viral panel -Pt states he did have his influenza vaccination Hypoxia- -Check ambulatory desat test Acute bronchitis -SVNS -Solumedrol Hypoxia -Oxygen Acute renal failure -IVF and monitor close Hyponatremia - monitor ANIYAH LAWRENCE DO Nov 21, 2018 11:21
[2018-11-21 12:00] VITALS: BP 145/86
[2018-11-21 16:45] VITALS: BP 155/94
[2018-11-21 19:10] VITALS: BP 160/77
[2018-11-21] MEDS ORDERED: NON-FORMULARY MEDICATION 1 EA EA (Hydrocodone/Acetaminophen (Hydrocodone-Acetamin 5-325 mg PO PRN (19:30)
[2018-11-21] MEDS ORDERED: ALPRAZolam 0.5 MG (XANAX) TAB PO PRN (19:30)
[2018-11-21] MEDS ORDERED: NON-FORMULARY MEDICATION 1 EA EA (Naproxen 500 MG) PO PRN (19:30)
[2018-11-21] MEDS ORDERED: NAPROXEN 250 MG (NAPROSYN) TABLET PO PRN (19:45)
[2018-11-21] MEDS ORDERED: HYDROcodone/APAP 5 MG/325 MG (LORTAB) TAB PO PRN (19:45)
[2018-11-21] MEDS: lisINopril 20 MG (PRINIVIL) TABLET PO SCH (20:30)
[2018-11-22] VITALS: BP 131/72
[2018-11-22] MEDS: methylPREDNISolone 125 MG (Solu-MEDROL) VIAL IV SCH (00:05)
[2018-11-22] MEDS: RT-ALBUTEROL/IPRATROPIUM 3 ML (DUONEB) VIAL INH SCH ×3 (02:42→10:30)
[2018-11-22] MEDS ORDERED: PANTOPRAZOLE 20 MG TABLET (PROTONIX) PO SCH (07:00)
[2018-11-22 07:33] VITALS: BP 134/74
--- NOTE | 2018-11-22 08:52 | Pulmonary Progress Note ---
Sepsis Event Evaluation Height, Weight, BMI Height: 6'2.00" Weight: 260lbs. 2.0oz. 117.445955dp; 33.4 BMI Method:Stated Focused Exam Lactate Level 11/19/18 21:11: Lactic Acid Level 0.68 Exam Exam Vital Signs Date Time Temp Pulse Resp B/P (MAP) Pulse Ox O2 Delivery O2 Flow Rate FiO2 11/22/18 07:37 92 Room Air 11/22/18 07:33 98.4 84 16 134/74 (94) 96 Nasal Cannula 2.50 11/22/18 02:42 91 Nasal Cannula 2.00 11/22/18 00:00 97.9 102 16 131/72 (91) 95 Room Air 2.00 11/21/18 22:44 94 Nasal Cannula 2.00 11/21/18 19:55 Room Air 11/21/18 19:10 97.8 98 20 160/77 (104) 93 Room Air 11/21/18 16:45 98.3 96 20 155/94 (114) 92 Room Air 11/21/18 12:00 98.5 89 18 145/86 (105) 95 Room Air 11/21/18 10:41 92 Nasal Cannula 2.00 I & O 11/22/18 07:00 Intake Total 1930 ml Balance 1930 ml Height & Weight Height: 6'2.00" Weight: 260lbs. 2.0oz. 117.374709rp; 33.4 BMI Method:Stated General Appearance: No Apparent Distress HEENT: Normal ENT Inspection Neck: Full Range of Motion, Normal Inspection Respiratory: Lungs Clear, No Accessory Muscle Use, No Respiratory Distress Cardiovascular: Regular Rate, Rhythm, No Murmur Capillary Refill: Less Than 3 Seconds Gastrointestinal: non tender, soft Extremity: Normal Capillary Refill, Normal Inspection Neurologic/Psychiatric: Alert, Oriented x3 Skin: Normal Color, Warm/Dry Lymphatic: No Adenopathy Results Lab Laboratory Tests 11/21/18 05:20 Assessment/Plan Assessment/Plan Influenza A -Tamiflu -check respiratory viral panel -Pt states he did have his influenza vaccination Hypoxia- -Check ambulatory desat test -PT qualifed for home oxygen yesterday however he is currently on RA. Will repeat testing. He will probably need home 02 Acute bronchitis -SVNS -Solumedrol - change to prednisone taper. Hypoxia -Oxygen Acute renal failure -IVF and monitor close Hyponatremia - monitor ANIYAH LAWRENCE DO Nov 22, 2018 08:52
[2018-11-22] MEDS ORDERED: predniSONE 10 MG TAB PO SCH (09:00)
[2018-11-22] MEDS ORDERED: lisINopril 20 MG (PRINIVIL) TABLET PO SCH (09:00)
[2018-11-22] MEDS ORDERED: NON-FORMULARY MEDICATION 1 EA EA (Esomeprazole Magnesium (Nexium 24Hr) 20 MG) PO SCH (09:00)
[2018-11-22] MEDS: lisINopril 20 MG (PRINIVIL) TABLET PO SCH (09:41)
[2018-11-22] MEDS: OSELTAMIVIR 75 MG (TAMIFLU) CAPSULE PO SCH (09:41)
[2018-11-22] MEDS: ENOXAPARIN 40 MG/0.4 ML (LOVENOX) SYR SC SCH (10:27)
--- NOTE | 2018-11-22 11:05 | Progress Note-Hospitalist ---
Subjective HPI/CC On Admission Date Seen by Provider: Nov 22, 2018 Time Seen by Provider: 11:30 Focused Exam Lactate Level 11/19/18 21:11: Lactic Acid Level 0.68 Objective Exam Vital Signs Vital Signs Date Time Temp Pulse Resp B/P (MAP) Pulse Ox O2 Delivery O2 Flow Rate FiO2 11/22/18 10:31 92 Room Air 11/22/18 07:33 98.4 84 16 134/74 (94) 2.50 11/20/18 01:35 32 Capillary Refill : Less Than 3 Seconds General Appearance: No Apparent Distress HEENT: Normal ENT Inspection Neck: Full Range of Motion, Normal Inspection Respiratory: Lungs Clear, No Accessory Muscle Use, No Respiratory Distress Cardiovascular: Regular Rate, Rhythm, No Murmur Extremity: Normal Capillary Refill, Normal Inspection Neurologic/Psychiatric: Alert, Oriented x3 Skin: Normal Color, Warm/Dry Lymphatic: No Adenopathy Results/Procedures Lab Patient resulted labs reviewed. Clinical Quality Measures DVT/VTE Risk/Contraindication: Risk Factor Score Per Nursin RFS Level Per Nursing on Admit: 4+=Very High STANTON PLUNKETT DO Nov 22, 2018 11:05
[2018-11-22] MEDS ORDERED: PRED10TA22 PO (11:43)
--- NOTE | 2018-11-22 11:44 | Discharge Summary-Hospitalist ---
Diagnosis/Chief Complaint Date of Admission Nov 19, 2018 at 22:09 Date of Discharge Discharge Date: Nov 22, 2018 Discharge Diagnosis (1) Influenza A Status: Acute (2) Wheezing Status: Acute (3) COPD (chronic obstructive pulmonary disease) Status: Acute (4) Smoker Status: Chronic Discharge Summary Discharge Physical Exam Allergies: Coded Allergies: No Known Drug Allergies (Unverified , 01/01/18) Vitals & I&Os Vital Signs Date Time Temp Pulse Resp B/P (MAP) Pulse Ox O2 Delivery O2 Flow Rate FiO2 11/22/18 13:45 84 16 134/74 92 Room Air 11/22/18 07:33 98.4 2.50 11/20/18 01:35 32 General Appearance: No Apparent Distress HEENT: Normal ENT Inspection Respiratory: Lungs Clear, No Accessory Muscle Use, No Respiratory Distress Cardiovascular: Regular Rate, Rhythm, No Murmur Extremity: Normal Capillary Refill, Normal Inspection Skin: Normal Color, Warm/Dry Neurologic/Psychiatric: Alert, Oriented x3 Hospital Course Was the Problem List Reviewed?: Yes Patient had a standard hospital course after he was admitted and supported with meds for influenza and wheezing which prompted consultation from Dr Coates. Overall he was able to improve rapidly and was deemed stable for DC with close f /u with PCP this week. Labs (last 24 hrs) Microbiology 11/19/18 Blood Culture - Preliminary, Resulted No growth Patient resulted labs reviewed. Discussion & Recommendations Discharge Planning: <30 minutes discharge planning Discharge Home Medications: Active Scripts Active Prednisone 10 Mg Tab.ds.pk 10 Mg PO DAILY Take 6 tabs(60mg)daily,decrease by 1 tab(10MG)daily. Reported Sildenafil (Sildenafil Citrate) 20 Mg Tablet 60 Mg PO DAILY PRN Hydrocodone-Acetamin 5-325 mg (Hydrocodone/Acetaminophen) 1 Each Tablet 1 Tab PO TID PRN #12 FILLED 11-04-18 Tamiflu (Oseltamivir Phosphate) 75 Mg Cap 75 Mg PO BID 5 Days 5 DAY SUPPLY FILLED 11-19-18 Multiple Vitamins (Multivitamin) 1 Each Tablet 1 Tab PO DAILY Baclofen 10 Mg Tablet 10 Mg PO BID PRN Nexium 24Hr (Esomeprazole Magnesium) 20 Mg Capsule.dr 20 Mg PO DAILY Xanax (Alprazolam) 0.5 Mg Tablet 0.5 Mg PO BID PRN Lisinopril 20 Mg Tablet 20 Mg PO DAILY Naproxen 500 Mg Tablet 500 Mg PO BID PRN Instructions to patient/family Please see electronic discharge instructions given to patient. Clinical Quality Measures DVT/VTE Risk/Contraindication: Risk Factor Score Per Nursin RFS Level Per Nursing on Admit: 4+=Very High STANTON PLUNKETT DO Nov 22, 2018 11:44
[2018-11-22 13:45] VITALS: BP 134/74
--- NOTE | 2018-11-22 13:45 | NUR ---
DISCHARGED PER W/C TO . INSTRUCTIONS GIVEN.
== END 2018-11-22 13:45 | disposition home or self-care (01) | DRG 153 ==
LOC: EDUNIT# 20:29 → ER 20:31 → ICU 22:09 → 4TH 11-20 13:01
PROVIDERS: ADMIT Family Medicine; ATTEND Family Medicine
DX: J11.1 Influenza due to unidentified influenza virus with other respiratory manifestations (principal); J44.0 Chronic obstructive pulmonary disease with (acute) lower respiratory infection; J20.9 Acute bronchitis, unspecified; N17.9 Acute kidney failure, unspecified; E87.1 Hypo-osmolality and hyponatremia; R09.02 Hypoxemia; F17.210 Nicotine dependence, cigarettes, uncomplicated; I10 Essential (primary) hypertension; K21.9 Gastro-esophageal reflux disease without esophagitis; F41.9 Anxiety disorder, unspecified
CPT/HCPCS: 36415; 71045; 71046; 80048; 80053; 83605; 83880; 85007; 85025; 85027; 87040; 94640; 94760; 94761

== ENCOUNTER → 2021-08-16 | Outpatient (CLI) | payer OTHER ==
[~2021-08-16] MED LIST changes: +ACHD5005 PO; +BACL10TA PO; +ESOM20CA58 PO; +HYDR-34 PO; -HYDR-3816 PO; +LEVO750T9 PO; -LISI-552 PO; +LISI20TA26 PO; +MULT-178 PO; +OSLT75C PO; +PRED10TA22 PO; +SILD20TA14 PO; -TRAM50TA2 PO; +TRM50T PO
--- NOTE | 2021-08-16 17:00 | Diagnostic Imaging Report ---
EXAMINATION: Chest 2 view HISTORY: EXPOSURE TO COVID, COUGH, HEADACHE, VIRAL DISEASES COMPARISON: 11/20/2018 FINDINGS: Heart size and pulmonary vasculature are normal. The lungs are clear without consolidation, pleural effusion, or pneumothorax. The osseous structures are intact. Cervical fusion hardware is present. IMPRESSION: 1. No acute radiographic abnormality in the chest. Dictated by: Dictated on workstation # [id number]
== END ==
LOC: RAD 16:21
PROVIDERS: ATTEND Physician Assistant
DX: B33.8 Other specified viral diseases (principal); I10 Essential (primary) hypertension; R05.8 Other specified cough; R51.9 Headache, unspecified; Z20.822 Contact with and (suspected) exposure to COVID-19
CPT/HCPCS: 71046